=== PATIENT | female | born 1945 | race Caucasian/White ===

== ENCOUNTER 2018-01-15 05:17 | Day surgery (SDC) | payer OTHER, MEDICARE ==
[~2018-01-15] VITALS: Ht 170.2 cm; Wt 89.6 kg
[~2018-01-15 05:17] MED LIST: CALCIUM 600 +1 EAC1 PO; ELIQUIS5 MG PO; FERROUS SU15 MG/1 ML PO; FLAX OIL1000 MG PO; LIPITOR20 MG PO; PROTONIX40 MG PO; PROZAC20 MG PO; TOPROL XL25 MG PO
[2018-01-15 06:09] VITALS: BP 168/76
[2018-01-15 08:50] VITALS: BP 149/72
[2018-01-15 09:37] VITALS: BP 146/68
== END 2018-01-15 09:45 | disposition home or self-care (01) ==
LOC: SDC 05:17
DX: S32.010G Wedge compression fracture of first lumbar vertebra, subsequent encounter for fracture with delayed healing (principal); I48.91 Unspecified atrial fibrillation; Z79.01 Long term (current) use of anticoagulants; I10 Essential (primary) hypertension; K21.9 Gastro-esophageal reflux disease without esophagitis; Z87.891 Personal history of nicotine dependence
CPT/HCPCS: J0131; J0330; J0690; J1100; J2405; J3010; Q0175